=== PATIENT | male | born 1965 | race Caucasian/White ===

== ENCOUNTER 2017-09-08 13:32 | Emergency (ER) | payer SELFPAY ==
[2017-09-08 13:36] VITALS: BP 154/89; PULSE 85; RESP 20; TEMP 37.6; O2SAT 97; BMI 29.9
--- NOTE | 2017-09-08 13:39 | EKG12_ITS ---
Test Reason : CP Blood Pressure : / mmHG Vent. Rate : 086 BPM Atrial Rate : 086 BPM P-R Int : 152 ms QRS Dur : 080 ms QT Int : 308 ms P-R-T Axes : 026 016 028 degrees QTc Int : 368 ms Normal sinus rhythm Normal ECG Confirmed by VIANEY FLYNN, JACQUELINE ([id number]), design editor FELIPE PICKERING ([id number]) on 09/11/2017 1:56:41 PM Referred By: TAB Confirmed By:JACQUELINE WINTERS MD
[2017-09-08 14:47] VITALS: BP 159/94; PULSE 87; RESP 16; O2SAT 96
--- NOTE | 2017-09-08 15:00 | RAD_ITS ---
STUDY: X-RAY CHEST REASON FOR EXAM: Male, 51 years old. Chest pain. TECHNIQUE: PA and lateral views of the chest. COMPARISON: None. FINDINGS: Focal lingular infiltrate. There is no demonstrated pleural abnormality. Normal size heart. Normal mediastinum and reymundo. Normal visualized pulmonary arteries. Normal visualized aortic arch and descending thoracic aorta. Normal visualized thoracic spine. Normal visualized ribs, clavicles, and shoulders. There is no demonstrated abnormality of the visualized soft tissue structures of the upper abdomen. RAD/Chest PA and Lateral IMPRESSION: Focal lingular infiltrate. Follow-up is recommended. Electronically Signed: Martell Da Silva MD at 15:25 EST Tel [phone], Service support ,
[2017-09-08 15:12] VITALS: PULSE 88; RESP 20
[2017-09-08] MEDS: Ipratropium/Albuterol Sulfate 3 ML AMPUL.NEB INHALATION (15:12)
--- NOTE | 2017-09-08 15:53 | ED.VISSUMM ---
- ER Visit Summary Date of Service: 09/08/17 Chief Complaint: [Chest pain] History of Present Illness: The patient is a 51 M [presents to the emergency department with retrosternal chest discomfort that started yesterday. Patient states that he has had start of a sinus infection and cough for several days. Yesterday patient sneezed and coughed real hard causing him the developed discomfort in the retrosternal area. Patient now complains of pain with certain movements, deep breath, and cough. Patient has had some subjective fever. Patient denies recent travel or surgery.] Physical Examination: [HEENT-PERRLA, EOMI. Cranial nerves II through XII grossly intact. TMs clear. Mucous membranes moist. No adenopathy. Cardiovascular-regular rate and rhythm without murmur Lungs-clear to auscultation, chest wall stable without crepitus or subcu emphysema. Patient has retrosternal chest discomfort that is reproducible with palpation. Abdomen-normoactive bowel sounds, soft, nontender, no rebound or rigidity, no peritoneal signs. Extremities-intact ?4, normal range of motion, normal pulses, atraumatic] Test Results: [Patient had a chest x-ray that showed a lingular infiltrate. EKG obtained on arrival shows sinus rhythm with a ventricular rate of 86 bpm with no acute ST segment changes. Influenza screen was negative.] Emergency Department Course and Treatment: [Patient was medicated with Toradol and Zithromax] Treatment Plan: [Patient will be started on Zithromax and given 12 [place] for pain]. Patient will also be given naproxen Disposition: [Discharged to home in stable condition] Impression: [Chest wall strain Pneumonia] This note was generated with [employer] dictation software. It may contain incorrect words, spelling, and punctuation that were not noted in review of the chart prior to signing ED Disposition - Plan for ED Patient: Chief Complaint: Chest Pain Referrals: Care Physician,No Primary [Primary Care Provider] -
--- NOTE | 2017-09-08 15:58 | ED.DCSUM_ITS ---
- ER Visit Summary Date of Service: 09/08/17 Chief Complaint: [Chest pain] History of Present Illness: The patient is a 51 M [presents to the emergency department with retrosternal chest discomfort that started yesterday. Patient states that he has had start of a sinus infection and cough for several days. Yesterday patient sneezed and coughed real hard causing him the developed discomfort in the retrosternal area. Patient now complains of pain with certain movements, deep breath, and cough. Patient has had some subjective fever. Patient denies recent travel or surgery.] Physical Examination: [HEENT-PERRLA, EOMI. Cranial nerves II through XII grossly intact. TMs clear. Mucous membranes moist. No adenopathy. Cardiovascular-regular rate and rhythm without murmur Lungs-clear to auscultation, chest wall stable without crepitus or subcu emphysema. Patient has retrosternal chest discomfort that is reproducible with palpation. Abdomen-normoactive bowel sounds, soft, nontender, no rebound or rigidity, no peritoneal signs. Extremities-intact ?4, normal range of motion, normal pulses, atraumatic] Test Results: [Patient had a chest x-ray that showed a lingular infiltrate. EKG obtained on arrival shows sinus rhythm with a ventricular rate of 86 bpm with no acute ST segment changes. Influenza screen was negative.] Emergency Department Course and Treatment: [Patient was medicated with Toradol and Zithromax] Treatment Plan: [Patient will be started on Zithromax and given 12 [place] for pain]. Patient will also be given naproxen Disposition: [Discharged to home in stable condition] Impression: [Chest wall strain Pneumonia] This note was generated with [employer] dictation software. It may contain incorrect words, spelling, and punctuation that were not noted in review of the chart prior to signing ED Disposition - Plan for ED Patient: Chief Complaint: Chest Pain Referrals: Care Physician,No Primary [Primary Care Provider] -
--- NOTE | 2017-09-08 15:58 | ED.DEP ---
ED Disposition - Plan for ED Patient: Chief Complaint: Chest Pain Instructions: ED Strain Chest Wall, ED Pneumonia Adult Prescriptions: Hydrocodone Bitart/Apap 5-325 [[place] 5/325] 1 - 2 tab PO Q4H PRN PRN 3 Days #12 tab PRN Reason: Pain Azithromycin [Zithromax] 250 mg PO DAILY #4 tab Naproxen [Naprosyn] 500 mg PO BID PRN #20 tab Referrals: Care Physician,No Primary [Primary Care Provider] - Ld Hassan MD [STAFF PHYSICIAN] - 5-7 Days
[2017-09-08] MEDS: Azithromycin 250 MG Tablet 500 MG PO (16:01)
[2017-09-08] MEDS: Ketorolac 30 MG/ML Syringe IV (16:02)
[2017-09-08 16:03] VITALS: PULSE 102; RESP 21; O2SAT 95
[2017-09-08 16:11] VITALS: BP 140/89; PULSE 96; RESP 14; O2SAT 95
== END 2017-09-08 16:11 | disposition home or self-care (01) ==
PROVIDERS: Emergency Provider Emergency Medicine
DX: S29.012A Strain of muscle and tendon of back wall of thorax, initial encounter (principal); X50.0XXA Overexertion from strenuous movement or load, initial encounter; Y93.89 Activity, other specified; Y92.9 Unspecified place or not applicable; J18.9 Pneumonia, unspecified organism; Z72.0 Tobacco use
CPT/HCPCS: 71046; 87804; 93005; 94640; 96374; 99282; A4216

== ENCOUNTER → 2017-09-11 11:41 | Outpatient (CLI) | payer SELFPAY ==
[2017-09-08 13:36] VITALS: BMI 29.9
[2017-09-08 16:11] VITALS: BP 140/89
[2017-09-11 11:45] LABS: Bacteria 0 SEEN /hpf (None Seen); Mucous, Urine 0 SEEN /hpf (<or=2+); Squamous Epithelial Cells - UA 0 SEEN /hpf (0-5)
[2017-09-11 15:48] LABS: Absolute Lymphocyte Count 2.76 X10^3/ul (0.83-4.51); Absolute Neutrophil Count 5.5 X10^3/uL (2.0-7.7); Basophil# 0.02 X10^3/uL; Basophil% 0.2 % (0-1); Eosinophil# 0.19 X10^3/uL; Eosinophils% 2.1 % (0-5); Hematocrit 43.9 % (40-54); Lymphocyte # 2.76 X10^3/ul (4.0); Lymphocyte % 30.4 % (19-41); Mean Corp Hgb Conc 31.9 g/gl (32-36); Mean Corpuscular Hgb 29.3 pg (27.0-32.0); Mean Corpuscular Volume 91.8 fL (80-94); Mean Platelet Vol. 10.4 fl (6.2-12.0); Monocyte# 0.62 X10^3/uL; Monocyte% 6.8 % (0-10); Neutrophil # 5.48 X10^3/uL (2.7-7.7); Neutrophil % 60.3 % (47-70); POSITIVE COUNT NO; POSITIVE DIFFERENTIAL NO; POSITIVE MORPHOLOGY NO; Platelet Count 287 K/mm3 (150-450); RBC Distribution Width CV 13.9 % (11.6-14.6); RBC Distribution Width SD 47.1 fl (35.1-43.9); Red Blood Count 4.78 M/mm3 (4.6-6.2); White Blood Count 9.1 K/mm3 (4.4-11.0)
[2017-09-11 15:55] LABS: Color, Urine Yellow (Yellow); Glucose, Dipstick Normal (Normal); Ketone-Dipstick Negative (Negative); Leukocyte Esterase-Dipstick 25 /ul (Negative); Nitrite-Dipstick Negative (Negative); Occult Blood-Urine Negative /ul (Negative); Protein-Dipstick Negative (Negative); Specific Gravity, Urine 1.015 (1.002-1.030); Urine Bilirubin Dipstick Negative (Negative); Urine Clarity Clear (Clear); Urine Urobilinogen Normal (Normal)
[2017-09-11 16:06] LABS: Hyaline Cast 0-5 SEEN /lpf (0-5)
[2017-09-11 16:08] LABS: ALB/GLOB Ratio 0.9 RATIO (0.9-2.4); AST(SGOT) 25 U/L (15-37); Alanine Aminotransfer ALT/SGPT 37 U/L (16-61); Albumin, Serum 3.4 g/dL (3.2-5.0); Alkaline Phosphatase 55 U/L (45-117); Anion Gap 9 (5-15); BUN 15 mg/dL (7-18); BUN/Creat Ratio 19.5 RATIO (10-20); Calcium,Total 8.1 mg/dL (8.5-10.1); Chloride 108 mmol/L (98-107); Cholesterol 204 mg/dL (200); Creatinine, Serum 0.77 mg/dL (0.70-1.30); EST Glomerular Filtration Rate 114 mL/min (>60); Est Glom Filt Rate - Afr Amer 138 mL/min (>60); Globulin 3.8 g/dL (2.2-4.2); Glucose 78 mg/dL (74-106); High Density Lipoprotein 31 mg/dL; Potassium 4.3 mmol/L (3.5-5.1); Protein, Total 7.2 g/dL (6.4-8.2); Red Blood Cells-Urine 0-5 SEEN /hpf (0-5); Sodium Level 139 mmol/L (136-145); Thyroid Stim Hormone (TSH) 1.28 uIU/mL (0.358-3.74); Triglycerides 249 mg/dL; Very Low Density Lipoprotein 50 mg/dL (5-40); White Blood Cells 0-5 SEEN /hpf (0-5)
[2017-09-11 16:28] LABS: Hemoglobin A1c 5.6 % (4.2-6.3)
== END ==
PROVIDERS: Family Provider Family Medicine; PCP Family Medicine; Visit Provider Family Medicine
DX: Z13.29 Encounter for screening for other suspected endocrine disorder (principal); Z13.220 Encounter for screening for lipoid disorders; R07.89 Other chest pain; Z72.0 Tobacco use; Z83.3 Family history of diabetes mellitus
CPT/HCPCS: 36415; 80053; 80061; 81001; 83036; 84443; 85025

== ENCOUNTER 2022-08-03 01:11 | Emergency (ER) | payer BC, SELFPAY ==
[2022-08-03 01:11] VITALS: BP 173/103; PULSE 81; RESP 19; TEMP 36.8; O2SAT 97; O2SAT 99; BMI 2913.9
--- NOTE | 2022-08-03 01:17 | EKG12_ITS ---
Test Reason : Blood Pressure : / mmHG Vent. Rate : 079 BPM Atrial Rate : 079 BPM P-R Int : 150 ms QRS Dur : 082 ms QT Int : 332 ms P-R-T Axes : 017 025 021 degrees QTc Int : 380 ms Normal sinus rhythm Normal ECG Confirmed by VIANEY FLYNN, JACQUELINE ([id number]), news videotape editor ALLA YOON ([id number]) on 08/05/2022 10:42:11 AM Referred By: Confirmed By:JACQUELINE WINTERS MD
--- NOTE | 2022-08-03 01:25 | RAD_ITS ---
INDICATION: chest pain EXAMINATION/TECHNIQUE: X-RAY - XR Chest 1 View COMPARISON: 09/08/2017 FINDINGS: LINES/DEVICES: None. LUNGS: No consolidation, edema or effusion. No pneumothorax. MEDIASTINUM AND CARDIOVASCULAR STRUCTURES: Cardiac silhouette not enlarged. Central airways and mediastinal contour are unremarkable. BONES AND SOFT TISSUES: Unremarkable. RAD/Chest 1 View (Portable) IMPRESSION: No radiographic evidence of acute cardiopulmonary disease. Electronically Signed: Yomi Miles MD at 1:52 EST ,
[2022-08-03 01:37] LABS: Absolute Lymphocyte Count 3.79 X10^3/uL (0.83-4.51); Absolute Neutrophil Count 10.6 X10^3/uL (2.0-7.7); Basophil# 0.07 X10^3/uL; Basophil% 0.4 % (0-1); Eosinophil# 0.29 X10^3/uL; Eosinophils% 1.8 % (0-5); Hematocrit 47.8 % (40-54); Hemoglobin 15.6 g/dL (13.0-16.5); Lymphocyte # 3.79 X10^3/ul (0.83-4.51); Lymphocyte % 23.3 % (19-41); Mean Corp Hgb Conc 32.6 g/dL (32-36); Mean Corpuscular Hgb 30.2 pg (27.0-32.0); Mean Corpuscular Volume 92.5 fL (80-94); Mean Platelet Vol. 9.6 fl (6.2-12.0); Monocyte# 1.41 X10^3/uL; Monocyte% 8.7 % (0-10); NRBC Flagged by Analyzer 0 % (0-5); Neutrophil % 65.2 % (47-70); Platelet Count 340 K/mm3 (150-450); RBC Distribution Width CV 13.2 % (11.6-14.6); RBC Distribution Width SD 45.1 fl (35.1-43.9); Red Blood Count 5.17 M/mm3 (4.6-6.2); White Blood Count 16.3 K/mm3 (4.4-11.0)
[2022-08-03 01:45] LABS: Anion Gap 5 (5-15); BUN 17 mg/dL (7-18); BUN/Creat Ratio 16.2 RATIO (10-20); Calcium,Total 9.3 mg/dL (8.5-10.1); Chloride 101 mmol/L (98-107); Creatinine, Serum 1.05 mg/dL (0.70-1.30); EST Glomerular Filtration Rate 78 mL/min (>60); Est Glom Filt Rate - Afr Amer 94 mL/min (>60); Estimated Creatinine Clearance 66.56 ml/min; Glucose 134 mg/dL (74-106); Potassium 3.9 mmol/L (3.5-5.1); Sodium Level 135 mmol/L (136-145); Troponin-I HS 4 pg/mL (3.0-78.0)
--- NOTE | 2022-08-03 01:49 | EDS_ITS ---
HPI History of Present Illness Chief Complaint: Chest Pain Informant: patient Onset/Context/Timing Onset: Hours (1.5) Activity at onset: sudden, onset and activity on onset (Laid down) Timing: Continuous and Waxes and wanes Quality: Positive for Pressure Location: - (Lower retrosternal) Current Severity: Mild Maximum Severity: Moderate Worsened By: Breathing (A little) Relieved By: - (Sitting up) Associated Symptoms: Positive for Dyspnea, Lightheadedness (Almost near syncopal) and - (Left arm aching) Narrative Narrative: Patient is a smoker, he has no known medical problems but he does not have a PCP or see a doctor except for very rare circumstances when I am sick. He states for the past couple weeks he has been having episodes of lightheadedness and sometimes near syncope at work. These are usually with light exertion. Tonight he laid down to sleep and he had this again but he also had chest discomfort with radiation to his left arm and shortness of breath. The symptoms persist although not as bad now. He denies any recent immobilization, hospitalization, long travel, he is not had any recent surgeries. No recent illness. PFSH PFSH Medical History no medical history no medical history Allergy/AdvReac Type Severity Reaction Status Date / Time No Known Allergies Allergy Verified 08/03/22 01:15 Social History Smoking Status: Current every day smoker tobacco type: cigarettes ROS ROS ED Constitutional Constitutional ED: Denies chills or fever(s) Eyes Eyes: Denies change in vision or diplopia ENT ENT ED: Denies rhinorrhea or sore throat Cardiovascular Cardiovascular: Reports chest pain and lightheadedness; Denies palpitations or syncope Respiratory/Chest Respiratory/Chest: Reports dyspnea; Denies cough Gastrointestinal Gastrointestinal: Denies abdominal pain, diarrhea, nausea or vomiting Genitourinary Genitourinary ED: Denies dysuria or hematuria Musculoskeletal Musculoskeletal: Denies back pain or neck pain Integumentary Denies abscess or rash Neurologic Neurologic: Denies headache(s), paresthesias or weakness Psychiatric Psychiatric: Denies anxiety or suicidal thoughts EXAM Physical Exam Const Vital Signs: 08/03/22 01:11 08/03/22 01:11 08/03/22 01:18 Temperature 98.2 F 98.2 F Temperature Source Temporal Temporal Pulse Rate 81 Respiratory Rate 19 H Blood Pressure 173/103 H 173/103 H Blood Pressure Mean 126 126 Pulse Ox 99 97 Oxygen Delivery Method Room Air Room Air Room Air 08/03/22 02:11 08/03/22 03:00 08/03/22 04:01 Temperature Temperature Source Pulse Rate 70 68 70 Respiratory Rate 21 H 19 H 18 Blood Pressure 139/83 H 161/89 H 154/91 H Blood Pressure Mean 101 113 Pulse Ox 97 96 97 Oxygen Delivery Method Room Air Room Air Positive well nourished and well developed General Appearance ED: well developed and NAD HEENT Reports moist mucous membranes normocephalic and atraumatic Eyes PERRL and EOMs intact bilaterally Neck full ROM and supple Chest Wall inspection of chest normal and palpation of chest normal Chest Narrative: Sternum nontender Resp normal respiratory effort and clear to auscultation bilaterally Cardio regular rate, regular rhythm and no murmurs GI non-tender and non-distended Auscultation: normoactive bowel sounds Palpation: soft Back/Spine no CVA tenderness General Back: other FROM Extremity normal to inspection, no calf tenderness and no pedal edema General Extremety ED: Negative for edema, pulses abnormal or tenderness General Extremity: Negative for edema or pulses abnormal Neuro oriented x3, CN's II-XII intact bilaterally and no sensory deficits noted Sensorium / Orientation: awake and alert Motor Exam: strength 5/5 throughout Psych mental status grossly normal Skin no rashes or lesions noted and no wounds Heart Score History: Moderately Suspicious ECG: Normal Age: >45 - <65 years Risk Factors: 1 or 2 Risk Factors Troponin: </= Normal Limit Score: 3 MDM MDM MDM Narrative Medical decision making narrative: EKG is normal, also performed more of a cardiac work-up including a D-dimer to rule out pulmonary embolus given the episodes of lightheadedness that he has. D-dimer is negative, he does have a nonspecific leukocytosis of unknown significance given that there is no shift or bandemia, his initial troponin is 4. I did a 2-hour delta, the second measurement is 3, and went down, and his EKG is normal. Given all of this, his heart score is 3, and I think he is stable for discharge home and close outpatient follow-up. He states that he actually does have a doctor but he cannot remember who it is, however the EMR lists Dr. Huerta. I discussed my concern for the patient's blood pressure. Without treating it, on reevaluation it is 154/91. Since he presents here with an acute symptomatic event, it is unknown if he has chronic hypertension or not. He agrees that he does not know. I recommend close outpatient follow-up with a recheck instead of prescribing him something now. We discussed the importance of blood pressure control chronically, and the fact that it can be asymptomatic until you have organ damage. He understood. Lab Data Attestation: I reviewed the patient's lab results. Labs: Laboratory Results - last 24 hr 08/03/22 08/03/22 08/03/22 00:15 01:15 01:15 WBC 16.3 H RBC 5.17 Hgb 15.6 Hct 47.8 MCV 92.5 MCH 30.2 MCHC 32.6 RDW Std Deviation 45.1 H RDW Coeff of [place] 13.2 Plt Count 340 MPV 9.6 Immature Gran % (Auto) 0.600 Neut % (Auto) 65.2 Lymph % (Auto) 23.3 [place] % (Auto) 8.7 Eos % (Auto) 1.8 Baso % (Auto) 0.4 Absolute Neuts (auto) 10.6 H Absolute Lymphs (auto) 3.79 Nucleated RBC % 0 D-Dimer Quant (PE/DVT) 0.36 Sodium 135 L Potassium 3.9 Chloride 101 Carbon Dioxide 29.0 Anion Gap 5 BUN 17 Creatinine 1.05 Estim Creat Clear Calc 66.56 Est GFR (MDRD) Af Amer 94 Est GFR (MDRD) Non-Af 78 BUN/Creatinine Ratio 16.2 Glucose 134 H Calcium 9.3 Troponin I High Sens 4 08/03/22 03:05 WBC RBC Hgb Hct MCV MCH MCHC RDW Std Deviation RDW Coeff of [place] Plt Count MPV Immature Gran % (Auto) Neut % (Auto) Lymph % (Auto) [place] % (Auto) Eos % (Auto) Baso % (Auto) Absolute Neuts (auto) Absolute Lymphs (auto) Nucleated RBC % D-Dimer Quant (PE/DVT) Sodium Potassium Chloride Carbon Dioxide Anion Gap BUN Creatinine Estim Creat Clear Calc Est GFR (MDRD) Af Amer Est GFR (MDRD) Non-Af BUN/Creatinine Ratio Glucose Calcium Troponin I High Sens 3 Radiography Chest X-Ray - ED: 1 View, Read by ED Physician and No Acute Disease Diagnostic Testing: Clinical Impression(s) from Imaging Studies Chest X-Ray 08/03/22 01:25 IMPRESSION: No radiographic evidence of acute cardiopulmonary disease. Electronically Signed: Yomi Miles MD at 1:52 EST , Rhythm Strip Rhythm Strip: Sinus Rhythm Rate: 80 Ectopy: None EKG Initial EKG: Attestation: I personally reviewed and interpreted this EKG as follows: Interpretation: Sinus Rhythm and No Acute Injury Pattern Comments: normal EKG Prior EKG tracings: available for review Prior: Unchanged Discharge Plan Triage Chief Complaint: Chest Pain ED Provider: David Sanchez Dx/Rx/DC Orders Clinical Impression: Chest pain, unspecified, Episode of hypertension Instructions: Blood Pressure Check Steps, ED Chest Pain, Uncertain Cause Primary Care Provider: Ld Huerta Referrals: Ld Huerta MD [Primary Care Provider] - As soon as possible (Call for appointment) Disposition Disposition: Home, Self Care
[2022-08-03 02:11] VITALS: BP 139/83; PULSE 70; RESP 21; O2SAT 97
[2022-08-03 02:19] LABS: D-Dimer Quantitative (DVT/PE) 0.36 FEU/ug/m (0.27-0.49)
[2022-08-03 03:00] VITALS: BP 161/89; PULSE 68; RESP 19; O2SAT 96
[2022-08-03] MEDS: Mag Hydrox/Al Hydrox/Simeth 30 ML UDC PO (03:02)
[2022-08-03 03:29] LABS: Troponin-I HS 3 pg/mL (3.0-78.0)
[2022-08-03 04:01] VITALS: BP 154/91; PULSE 70; RESP 18; O2SAT 97
== END 2022-08-03 04:10 | disposition home or self-care (01) ==
PROVIDERS: Emergency Provider Emergency Medicine; PCP Family Medicine; Visit Provider Emergency Medicine
DX: R07.9 Chest pain, unspecified (principal); I10 Essential (primary) hypertension; F17.210 Nicotine dependence, cigarettes, uncomplicated
CPT/HCPCS: 71045; 80048; 84484; 85025; 85379; 93005; 99285; A4216

== ENCOUNTER → 2022-08-06 | Outpatient (CLI) | payer BC, SELFPAY ==
[2022-08-06 11:26] LABS: Bacteria 0 SEEN /hpf (None Seen); Mucous, Urine 0 SEEN /hpf (<or=2+); Red Blood Cells-Urine 0 SEEN /hpf (0-5); Squamous Epithelial Cells - UA 0 SEEN /hpf (0-5); White Blood Cells 0 SEEN /hpf (0-5)
[2022-08-06 15:21] LABS: Absolute Lymphocyte Count 2.99 X10^3/uL (0.83-4.51); Absolute Neutrophil Count 6.4 X10^3/uL (2.0-7.7); Basophil# 0.04 X10^3/uL; Basophil% 0.4 % (0-1); Eosinophil# 0.24 X10^3/uL; Eosinophils% 2.3 % (0-5); Hematocrit 43.6 % (40-54); Hemoglobin 13.9 g/dL (13.0-16.5); Lymphocyte # 2.99 X10^3/ul (0.83-4.51); Lymphocyte % 28.2 % (19-41); Mean Corp Hgb Conc 31.9 g/dL (32-36); Mean Platelet Vol. 10.5 fl (6.2-12.0); Monocyte% 8.5 % (0-10); NRBC Flagged by Analyzer 0 % (0-5); Neutrophil # 6.36 X10^3/uL (2.7-7.7); Platelet Count 337 K/mm3 (150-450); RBC Distribution Width CV 13.3 % (11.6-14.6); RBC Distribution Width SD 46.3 fl (35.1-43.9); Red Blood Count 4.64 M/mm3 (4.6-6.2); White Blood Count 10.6 K/mm3 (4.4-11.0)
[2022-08-06 15:27] LABS: Color, Urine Yellow (Yellow); Glucose, Dipstick Normal (Normal); Ketone-Dipstick Negative (Negative); Leukocyte Esterase-Dipstick Negative /ul (Negative); Nitrite-Dipstick Negative (Negative); Occult Blood-Urine Negative /ul (Negative); Protein-Dipstick Negative (Negative); Urine Bilirubin Dipstick Negative (Negative); Urine Clarity Clear (Clear); Urine Urobilinogen Normal (Normal)
[2022-08-06 15:42] LABS: ALB/GLOB Ratio 1.1 RATIO (0.9-2.4); AST(SGOT) 12 U/L (15-37); Alanine Aminotransfer ALT/SGPT 23 U/L (16-61); Albumin, Serum 3.6 g/dL (3.2-5.0); Alkaline Phosphatase 54 U/L (45-117); Anion Gap 5 (5-15); BUN 14 mg/dL (7-18); BUN/Creat Ratio 17.8 RATIO (10-20); Calcium,Total 8.8 mg/dL (8.5-10.1); Chloride 107 mmol/L (98-107); Cholesterol 248 mg/dL (200); Creatinine, Serum 0.79 mg/dL (0.70-1.30); EST Glomerular Filtration Rate 109 mL/min (>60); Est Glom Filt Rate - Afr Amer 131 mL/min (>60); Globulin 3.2 g/dL (2.2-4.2); Glucose 89 mg/dL (74-106); High Density Lipoprotein 49 mg/dL; Potassium 4.4 mmol/L (3.5-5.1); Protein, Total 6.8 g/dL (6.4-8.2); Sodium Level 138 mmol/L (136-145); Triglycerides 155 mg/dL; Very Low Density Lipoprotein 31 mg/dL (5-40)
== END | disposition home or self-care (01) ==
LOC: MTLAB 11:09
PROVIDERS: PCP Family Medicine; Referring Provider Family Medicine; Visit Provider Family Medicine
DX: R03.0 Elevated blood-pressure reading, without diagnosis of hypertension (principal)
CPT/HCPCS: 80053; 80061; 81001; 83735; 85025

== ENCOUNTER → 2022-08-11 | Outpatient (CLI) | payer BC, SELFPAY ==
--- NOTE | 2022-08-11 19:05 | STRESSREP ---
Stress Test Report Exercise myocardial perfusion stress test. 56-year-old man with a history of chest pain Stress protocol: Resting EKG demonstrates normal sinus rhythm with a rate of 76 bpm resting blood pressure is 148/84 mmHg. The patient exercised according to the regular Denis protocol for a total duration of 8 minutes completing 2 minutes into stage III of the Denis protocol attaining a maximum heart rate of 150 bpm which was 90% of max impacted heart rate the maximum workload was 10.1 metabolic equivalents. At rest there were no ST or T wave changes noted suggest ischemia and at peak exercise upsloping ST changes only were noted we did not meet the criteria for ischemia. No clinical angina was noted the test was terminated due to the target heart rate being achieved. The peak blood pressure was 164/80 mmHg. Rate-pressure product was 24,000. Conclusion: Normal exercise myocardial perfusion stress test at a high workload. Good functional aerobic capacity
== END | disposition home or self-care (01) ==
LOC: CVS 11:32
PROVIDERS: PCP Family Medicine; Visit Provider Family Medicine
DX: R07.9 Chest pain, unspecified (principal)
CPT/HCPCS: 93017

== ENCOUNTER → 2022-11-20 | Outpatient (CLI) | payer BC, SELFPAY ==
[2022-11-20 18:09] LABS: Vitamin B12 299 pg/mL (211-911)
[2022-11-20 18:13] LABS: Ferritin 84 ng/mL (26-388); Thyroid Stim Hormone (TSH) 1.67 uIU/mL (0.358-3.74)
== END | disposition home or self-care (01) ==
PROVIDERS: PCP Family Medicine; Visit Provider Family Medicine
DX: R53.83 Other fatigue (principal); G25.81 Restless legs syndrome
CPT/HCPCS: 36415; 82607; 82652; 82728; 84443